=== PATIENT | male | born 1995 | race African-American/Black ===

== ENCOUNTER 2016-10-10 15:05 | Emergency (ER) | payer OTHER ==
[~2016-10-10] VITALS: Ht 172.7 cm; Wt 58.1 kg
[2016-10-10 15:10] VITALS: BP 136/75
== END 2016-10-10 22:35 | disposition home or self-care (01) ==
LOC: ER 15:14
DX: M27.69 Other endosseous dental implant failure (principal); K04.7 Periapical abscess without sinus; F17.210 Nicotine dependence, cigarettes, uncomplicated

== ENCOUNTER 2017-11-25 14:35 | Emergency (ER) | payer OTHER ==
[~2017-11-25] VITALS: Ht 175.3 cm; Wt 68.0 kg
[2017-11-25 14:43] VITALS: BP 109/87
== END 2017-11-25 17:57 | disposition home or self-care (01) ==
LOC: ER 14:41
DX: S66.911A Strain of unspecified muscle, fascia and tendon at wrist and hand level, right hand, initial encounter (principal); F17.210 Nicotine dependence, cigarettes, uncomplicated; X58.XXXA Exposure to other specified factors, initial encounter; Y93.89 Activity, other specified; Y92.89 Other specified places as the place of occurrence of the external cause; Y99.8 Other external cause status
CPT/HCPCS: 73090

== ENCOUNTER 2018-10-28 10:07 | Emergency (ER) | payer MEDICAID, OTHER ==
[~2018-10-28] VITALS: Ht 177.8 cm; Wt 65.8 kg
[2018-10-28 10:30] VITALS: BP 117/60
[2018-10-28] MEDS ORDERED: KETOROLAC TROMETH 60MG/2ML VIAL IM ONE (10:45)
[2018-10-28] MEDS ORDERED: HYDROcodone-ACET 10/325MG TAB PO ONE (11:00)
== END 2018-10-28 11:39 | disposition home or self-care (01) ==
LOC: ER 10:07
DX: S52.301D Unspecified fracture of shaft of right radius, subsequent encounter for closed fracture with routine healing (principal); S52.611D Displaced fracture of right ulna styloid process, subsequent encounter for closed fracture with routine healing; X58.XXXD Exposure to other specified factors, subsequent encounter
CPT/HCPCS: 29125; 73090; 96372; 99283; J1885; 29105

== ENCOUNTER 2018-11-07 13:14 | Emergency (ER) | payer MEDICAID ==
[~2018-11-07] VITALS: Ht 175.3 cm; Wt 65.8 kg
[2018-11-07 13:54] VITALS: BP 116/61
== END 2018-11-07 14:40 | disposition home or self-care (01) ==
LOC: ER 13:17
DX: S52.91XD Unspecified fracture of right forearm, subsequent encounter for closed fracture with routine healing (principal); F17.210 Nicotine dependence, cigarettes, uncomplicated; Z76.0 Encounter for issue of repeat prescription; X58.XXXD Exposure to other specified factors, subsequent encounter
CPT/HCPCS: 29125

== ENCOUNTER → 2019-08-21 | Emergency (ER) | payer MEDICAID ==
[~2019-08-21] VITALS: Ht 177.8 cm; Wt 67.1 kg
[~2019-08-21] MED LIST: HYDROcodone-ACET 10/325MG TAB PO ONE
[2019-08-22 02:02] VITALS: BP 113/70
== END | disposition home or self-care (01) ==
LOC: ER 21:47
DX: S52.301A Unspecified fracture of shaft of right radius, initial encounter for closed fracture (principal); S52.611A Displaced fracture of right ulna styloid process, initial encounter for closed fracture; M25.551 Pain in right hip; M54.2 Cervicalgia; R51 Headache; F17.210 Nicotine dependence, cigarettes, uncomplicated; V43.52XA Car driver injured in collision with other type car in traffic accident, initial encounter; Y93.89 Activity, other specified; Y92.488 Other paved roadways as the place of occurrence of the external cause; Y99.8 Other external cause status
CPT/HCPCS: 29125; 70450; 72125; 73060; 73090; 73120

== ENCOUNTER 2019-10-26 19:38 | Emergency (ER) | payer MEDICAID ==
[~2019-10-26] VITALS: Ht 170.2 cm; Wt 59.0 kg
[2019-10-26 19:55] VITALS: BP 129/80
== END 2019-10-26 21:32 ==
LOC: ER 19:38
DX: G89.18 Other acute postprocedural pain (principal); M79.601 Pain in right arm; F17.210 Nicotine dependence, cigarettes, uncomplicated
CPT/HCPCS: 93971

== ENCOUNTER 2020-05-16 18:04 | Emergency (ER) | payer MEDICAID ==
[~2020-05-16] VITALS: Ht 177.8 cm; Wt 73.0 kg
[2020-05-16] MEDS ORDERED: IBUPROFEN 600 MG TAB PO ONE (18:15)
[2020-05-16 19:03] VITALS: BP 118/78
== END 2020-05-16 20:36 | disposition home or self-care (01) ==
LOC: ER 18:04
DX: S93.401A Sprain of unspecified ligament of right ankle, initial encounter (principal); X58.XXXA Exposure to other specified factors, initial encounter; Y93.89 Activity, other specified; Y92.89 Other specified places as the place of occurrence of the external cause; Y99.8 Other external cause status
CPT/HCPCS: 73610; 73630

== ENCOUNTER 2023-03-20 19:13 | Emergency (ER) | payer MEDICAID, OTHER ==
[~2023-03-20] VITALS: Ht 180.3 cm; Wt 68.2 kg
[2023-03-20] MEDS ORDERED: PERCOT PO (23:18)
[2023-03-20 23:27] VITALS: BP 132/78; PULSE 98; RESP 18; TEMP 97.9
[2023-03-20 23:28] VITALS: O2SAT 100
[2023-03-20] MEDS ORDERED: OXYCODONE W/ ACETAMINOPHEN 5/325MG TABLET PO ONE (23:30)
== END 2023-03-21 00:03 | disposition home or self-care (01) ==
LOC: ER 19:13
DX: G89.18 Other acute postprocedural pain (principal); M79.631 Pain in right forearm
CPT/HCPCS: 73090; 73502

== ENCOUNTER 2023-04-06 00:32 | Emergency (ER) | payer OTHER ==
[~2023-04-06] VITALS: Ht 177.8 cm; Wt 64.7 kg
[~2023-04-06 00:32] MED LIST changes: -HYDROcodone-ACET 10/325MG TAB PO ONE; +PERCOT PO
[2023-04-06 01:06] VITALS: BP 117/73; PULSE 83; RESP 16; O2SAT 100
[2023-04-06] MEDS ORDERED: BACL10TA PO (03:57)
[2023-04-06] MEDS ORDERED: HYDR-4902 PO (03:57)
[2023-04-06] MEDS ORDERED: IBUP1TAB5 PO (03:57)
[2023-04-06] MEDS ORDERED: KETOROLAC TROMETH 60MG/2ML VIAL IM ONE (04:00)
[2023-04-06] MEDS ORDERED: HYDROcodone-ACET 5/325MG TAB PO ONE (04:00)
== END 2023-04-06 06:34 | disposition home or self-care (01) ==
LOC: ER 00:32
DX: S33.5XXA Sprain of ligaments of lumbar spine, initial encounter (principal); S23.3XXA Sprain of ligaments of thoracic spine, initial encounter; M41.9 Scoliosis, unspecified; W18.39XA Other fall on same level, initial encounter; Y93.89 Activity, other specified; Y92.89 Other specified places as the place of occurrence of the external cause; Y99.8 Other external cause status
CPT/HCPCS: 72070; 72100; 96372; 99284; J1885